=== PATIENT | male | born 1980 | race Hispanic/Latino ===

== ENCOUNTER → 2019-08-21 | Day surgery (SDC) | payer OTHER ==
[~2019-08-21] MED LIST: BUPIVACAINE HCL 0.5% INJ 30 ML VIAL INJ ONE; CEFAZOLIN SOD 1 GM/NS 50ML 50 ML IV ONE; DEXAMETHASONE SOD PHOS INJ 4 MG/ML VIAL ONE; FENTANYL CITRATE/PF 100MCG/2 ML INJ ONE; LIDOCAINE HCL 2% JELLY 5 ML TUBE ONE; LIDOCAINE HCL 2% LOCAL INJ 5 ML SDV VIAL INJ ONE; MIDAZOLAM HCL 2 MG/2 ML VIAL ONE; NEOSTIGMINE 1 MG/ML 10ML VIAL ONE; ONDANSETRON HCL INJ 2MG/ML 2ML 2 MG/ML VIAL ONE; PROPOFOL IV EMULSION 10 MG/ML 20 ML VIAL ONE; SEVOFLURANE INHAL SOLN 250 ML PEN BTL ONE; TYLENOL PO
[2019-08-21 12:45] VITALS: BP 130/76
--- NOTE | 2019-08-24 03:45 | Operative Report ---
DATE OF PROCEDURE: 08/21/2019 SURGEON: Ty Ceballos MD PREOPERATIVE DIAGNOSES: 1. Atrophic and tender and painful left testicle. 2. Desires sterilization. 3. Microhematuria. POSTOPERATIVE DIAGNOSES: 1. Atrophic and tender and painful left testicle. 2. Desires sterilization. 3. Microhematuria. OPERATIONS PERFORMED: 1. Right vasectomy. 2. Left orchiectomy. 3. Regional nerve blocks (separate procedure performed for postoperative pain control and not required for the actual performance of surgery, which was done under general anesthesia). 4. Cystourethroscopy (separately performed to evaluate the microhematuria). ANESTHESIA: General. COMPLICATIONS: None. CLINICAL SUMMARY: Jay Jay Goyal is a 39-year-old man, with the above preoperative diagnosis, brought for the above procedures. He is aware of the risks of bleeding, infection, injury to adjacent structures, need for additional procedures and elected to proceed. The patient understands he could have hypogonadism as well as impotence. He also understands that this vasectomy is intended to be a permanent procedure, although it can be reversed, but is not guaranteed and it is expensive. He understood all these risks and elected to proceed. OPERATIVE PROCEDURE IN DETAIL: Informed consent was verified. Jay Jay Goyal was properly identified, taken to the operating room, placed on the operating table in supine position. Anesthesia was uneventfully begun. The patient's genitalia were then prepared and draped in usual sterile fashion. The right spermatic cord was isolated at the scrotal neck. The no-scalpel vasectomy instrumentation was utilized. We pierced into the skin with a dissecting forceps and spread it. We then isolated the vas from its surrounding structures within the spermatic cord. We then utilized a needle-tip electrocautery to score the mucosa of the vas at the distal stump. We then placed two hemoclips on the distal stump and divided the vas. We then treated the proximal stump in the same fashion and resected out a 2 cm segment of vas. Hemostasis was excellent. We then utilized Marcaine to infiltrate the spermatic cord proximal to our region of dissection. This regional block was done for postoperative pain control and not required for the actual performance of surgery, which was done under general anesthesia. The testis was then brought into its normal anatomical position. Scrotal neck incision was made in the left hemiscrotum. The spermatic cord was delivered through this incision. It was then isolated at the level of the groin. The spermatic cord was suture ligated with a heavy Ethibond suture and then freehand tied proximal to that as a secondary measure to control hemostasis. Marcaine without epinephrine was utilized to infiltrate the spermatic cord proximal to the region of dissection. This was done for postoperative pain control and not required for the actual performance of surgery, which was done under anesthesia. The spermatic cord was then divided. The testis was then dissected free from the scrotum. Copious irrigation was performed. We verified hemostasis. We infiltrated circumferentially at both incisions. The left scrotal incision was then approximated in 2 layers utilizing 3-0 chromic suture. Sterile dressings were applied. Flexible cystoscopy was then performed. The urethra was unremarkable. Sphincteric region was normal. The prostate bed did not exhibit any BPH. We entered the patient's bladder. Panendoscopy revealed very minimal trabeculations, but there were no tumors, no stones, no diverticula. No suspicious mucosal lesions and no etiology for the patient's microhematuria. The patient was then uneventfully reversed from anesthesia and taken to recovery room in stable condition. There were no complications to the procedure. He tolerated the procedure well. Explicit postop instructions were given and we will follow the patient up in the office. Very explicit instructions were given to continue to use contraception. The patient and his were told sensitively that he is still fertile and until we obtain two negative semen specimens after three months, they are to consider him fertile and continue to use contraception. Ty Ceballos MD [facility] /[id number] cc: Valeriy Watson III, MD
== END | disposition home or self-care (01) ==
LOC: OR 08:47
PROVIDERS: ATTEND Urology
DX: N50.0 Atrophy of testis (principal); Z30.2 Encounter for sterilization; R31.29 Other microscopic hematuria; N32.89 Other specified disorders of bladder; Z01.812 Encounter for preprocedural laboratory examination; Z11.59 Encounter for screening for other viral diseases; F17.200 Nicotine dependence, unspecified, uncomplicated
CPT/HCPCS: 87635; 88302; 88305; J0690; J1100; J2001; J2250; J2405; J2710; J3010